=== PATIENT | female | born 2000 | race African-American/Black ===

== ENCOUNTER 2021-03-17 15:05 | Inpatient (IN) | payer OTHER ==
[2021-03-17] MEDS ORDERED: AMPICILLIN - 2 GM in SODIUM CHLORIDE 100 ML IVPB ONE (16:00)
[2021-03-17] MEDS ORDERED: ELECTROLYTE-148 SOLN 1,000 ML IV SCH (16:00)
[2021-03-17] MEDS ORDERED: SODIUM CHLORIDE 100 ML IVPB ONE (16:18)
[2021-03-17] MEDS ORDERED: AMPICILLIN SODIUM 2 GM VIAL ONE (16:18)
[2021-03-17 16:53] VITALS: BMI 29.6
[2021-03-17 17:05] LABS: BASO % 0.1 % (0-2.0); EOS % 0.3 % (0-4.5); HEMATOCRIT 28.5 % (32.4-45.2); HEMOGLOBIN 9.3 GM/dL (10.7-15.3); LYMPH % 24.1 % (8-40); MCH 27.4 pg (25.7-33.7); MCHC 32.7 g/dl (32.0-36.0); MEAN CELL VOLUME 83.8 fl (80-96); MEAN PLT VOLUME 8.8 fl (7.5-11.1); MONO % 11.1 % (3.8-10.2); NEUT % 64.4 % (42.8-82.8); PLATELET COUNT 136 10^3/uL (134-434); RDW 13.2 % (11.6-15.6); WHITE BLOOD COUNT 13.4 K/mm3 (4.0-10.0)
[2021-03-17 17:29] LABS: METHADONE, UR NEGATIVE (NEGATIVE); OPIATES, URI NEGATIVE (NEGATIVE); URINE BARBITURATES NEGATIVE (NEGATIVE); URINE BENZODIAZEPINES NEGATIVE (NEGATIVE)
[2021-03-17] MEDS ORDERED: LIDOCAINE HCL 1% PRESERVATIVE FREE - 30ML VIAL ONE (17:29)
[2021-03-17] MEDS ORDERED: OXYTOCIN 20 UNITS in 0.9% NS 20 UNIT/1,000 ML INFUS.BAG IV ONE (17:29)
[2021-03-17 17:30] LABS: PHENCYCLIDINE,URINE NEGATIVE (NEGATIVE); URINE AMPHETAMINES NEGATIVE (NEGATIVE)
[2021-03-17 17:33] LABS: COCAINE, UR NEGATIVE (NEGATIVE)
[2021-03-17 17:51] LABS: SYPHILIS W/ RPR CONF NON-REACTIVE (NONREACTIVE)
[2021-03-17 18:13] LABS: INR 0.93 (0.83-1.09); PROTHROMBIN TIME (PATIENT) 11.3 SEC (9.7-13.0)
[2021-03-17 18:16] LABS: ACTIVATED PTT 24.4 SECONDS (25.2-36.5)
[2021-03-17] MEDS ORDERED: BISACODYL 10 MG SUPP.RECT RC PRN (18:17)
[2021-03-17] MEDS ORDERED: METHYLERGONOVINE MALEATE 0.2 MG/1 ML AMP IM PRN (18:17)
[2021-03-17] MEDS ORDERED: BENZOCAINE 20% 57 GM BOTTLE TP PRN (18:17)
[2021-03-17] MEDS ORDERED: BENZOCAINE 28 GM HEMORRHOIDAL OINTMENT TP PRN (18:17)
[2021-03-17] MEDS ORDERED: WITCH HAZEL 50% (TUCKS) 40 PAD/JAR PAD TP PRN (18:17)
[2021-03-17 18:19] LABS: HIV INTERPRETATION NEGATIVE (NEGATIVE)
[2021-03-17] MEDS ORDERED: OXYTOCIN 20 UNITS in 0.9% NS 20 UNIT/1,000 ML INFUS.BAG IV SCH (18:30)
[2021-03-17] MEDS ORDERED: IBUPROFEN 600 MG TABLET (FP) PO ONE (18:44)
[2021-03-17] MEDS: IBUPROFEN 600 MG TABLET (FP) PO PRN (18:45)
[2021-03-17] MEDS ORDERED: AMPICILLIN - 1 GM in SODIUM CHLORIDE 100 ML IVPB SCH (20:00)
[2021-03-17] MEDS: FERROUS SO4 325 MG TABLET (FP) PO SCH (23:02)
[2021-03-18] MEDS: ACETAMINOPHEN 325 MG TABLET (FP) PO PRN ×2 (02:08→12:41)
[2021-03-18] MEDS: IBUPROFEN 600 MG TABLET (FP) PO PRN ×2 (02:09→12:40)
[2021-03-18 08:13] LABS: BASO % 0.2 % (0-2.0); EOS % 0.4 % (0-4.5); HEMATOCRIT 26.6 % (32.4-45.2); HEMOGLOBIN 8.6 GM/dL (10.7-15.3); LYMPH % 19.6 % (8-40); MCH 27.3 pg (25.7-33.7); MCHC 32.5 g/dl (32.0-36.0); MEAN CELL VOLUME 83.8 fl (80-96); MEAN PLT VOLUME 9.1 fl (7.5-11.1); MONO % 13.2 % (3.8-10.2); NEUT % 66.6 % (42.8-82.8); PLATELET COUNT 145 10^3/uL (134-434); RBC 3.17 M/mm3 (3.60-5.2); RDW 13.1 % (11.6-15.6); WHITE BLOOD COUNT 16.3 K/mm3 (4.0-10.0)
[2021-03-18] MEDS: FERROUS SO4 325 MG TABLET (FP) PO SCH ×2 (11:04→21:47)
[2021-03-18] MEDS: PRENATAL VITAMINS W/ FOLIC ACID TABLET (FP) PO SCH (11:04)
[2021-03-18] MEDS ORDERED: SENNOSIDES/DOCUSATE COMBO (SENNA PLUS) TABLET (UD) PO PRN (22:00)
[2021-03-19] MEDS: PRENATAL VITAMINS W/ FOLIC ACID TABLET (FP) PO SCH (09:04)
[2021-03-19] MEDS: FERROUS SO4 325 MG TABLET (FP) PO SCH (09:04)
[2021-03-19] MEDS: IBUPROFEN 600 MG TABLET (FP) PO PRN (09:04)
[2021-03-19 10:12] VITALS: BP 111/74; PULSE 55; TEMP 97.9
== END 2021-03-19 13:13 | disposition home or self-care (01) | DRG 560 ==
LOC: JDEL 15:05 → JLDR 15:55 → J3W 19:51
PROVIDERS: ADMIT Obstetrics & Gynecology; ATTEND Obstetrics & Gynecology
PROC: 10E0XZZ Delivery of Products of Conception, External Approach (ICD-10-PCS; principal; 2021-03-17)
DX: O80 Encounter for full-term uncomplicated delivery (principal); Z3A.38 38 weeks gestation of pregnancy; Z37.0 Single live birth
CPT/HCPCS: 36415; 59409; 80307; 85025; 85610; 85730; 86762; 86780; 86850; 86900; 86901; 87081; 87340; 87389; C9803; U0003; U0005